=== PATIENT | female | born 1995 | race Caucasian/White ===

== ENCOUNTER 2017-12-25 10:30 | Outpatient (CLI) | payer BC ==
[~2017-12-25] VITALS: Ht 162.6 cm; Wt 143.3 kg
[2017-12-26] MEDS ORDERED: DEXAINTSOL PO (09:46)
[2017-12-26] MEDS ORDERED: TETRACAINESUCKERS MT (09:46)
[2017-12-26] MEDS ORDERED: HYDR15SO8 PO (09:46)
[2017-12-26] MEDS ORDERED: AMOX250S5 PO (09:46)
== END 2017-12-25 14:44 ==
LOC: PREOP 10:30
PROVIDERS: ATTEND Otolaryngology Otolaryngology/Facial Plastic Surgery
DX: Z01.818 Encounter for other preprocedural examination (principal); R06.83 Snoring; J35.3 Hypertrophy of tonsils with hypertrophy of adenoids

== ENCOUNTER 2017-12-26 06:47 | Day surgery (SDC) | payer BC ==
[~2017-12-26] VITALS: Ht 162.6 cm; Wt 143.3 kg
--- NOTE | 2017-12-26 07:09 | Progress Note-Pre Operative ---
Pre-Operative Progress Note H&P Reviewed The H&P was reviewed, patient examined and no changes noted. Date Seen by Provider: Dec 26, 2017 Time Seen by Provider: 07:00 Date H&P Reviewed: Dec 26, 2017 Time H&P Reviewed: 07:00 Pre-Operative Diagnosis: REc Tons/ Tons Hypertrophy IVON CIFUENTES MD Dec 26, 2017 7:09 am
[2017-12-26 07:10] VITALS: BP 146/98
[2017-12-26 07:25] LABS: BASOPHILS # (AUTO) 0.1 10^3/uL (0.0-0.1); BASOPHILS % (AUTO) 1 % (0-10); EOSINOPHILS # (AUTO) 0.2 10^3/uL (0.0-0.3); EOSINOPHILS % (AUTO) 1 % (0-10); HEMATOCRIT 41 % (35-52); LYMPHOCYTES # (AUTO) 2.5 X 10^3 (1.0-4.0); LYMPHOCYTES % (AUTO) 23 % (12-44); MEAN CORPUSCULAR HEMOGLOBIN 26 PG (25-34); MEAN CORPUSCULAR HGB CONC 32 G/DL (32-36); MEAN CORPUSCULAR VOLUME 81 FL (80-99); MEAN PLATELET VOLUME 9.8 FL (7.4-10.4); MONOCYTES # (AUTO) 0.8 X 10^3 (0.0-1.0); MONOCYTES % (AUTO) 7 % (0-12); NEUTROPHILS # (AUTO) 7.4 X 10^3 (1.8-7.8); NEUTROPHILS % (AUTO) 68 % (42-75); PLATELET COUNT 355 10^3/uL (130-400); RED BLOOD COUNT 5.02 10^6/uL (4.35-5.85); RED CELL DISTRIBUTION WIDTH 14.6 % (10.0-14.5); WHITE BLOOD COUNT 10.9 10^3/uL (4.3-11.0)
[2017-12-26] MEDS ORDERED: MIDAZOLAM 2 MG/2 ML (VERSED) VIAL ONE (07:50)
[2017-12-26] MEDS ORDERED: LIDOCAINE PF 2% 5 ML (XYLOCAINE) VIAL ONE (07:50)
[2017-12-26] MEDS ORDERED: ONDANSETRON 4 MG/2 ML (SDV) Z0FRAN ONE (07:50)
[2017-12-26] MEDS ORDERED: proPOfol 200 MG/20 ML (DIPRIVAN) VIAL IV ONE (07:50)
[2017-12-26] MEDS ORDERED: fentaNYL INJECTION 100 MCG/2 ML AMP ONE (07:50)
[2017-12-26] MEDS ORDERED: DEXAMETHASONE 10 MG/ML (DECADRON) 1 ML VIAL ONE (07:51)
[2017-12-26] MEDS ORDERED: LACTATED RINGERS 1,000 ML IV PRN (08:10)
[2017-12-26] MEDS ORDERED: SEVOFLURANE (ULTANE) 15 ML INHAL SOLN ONE (08:29)
[2017-12-26] MEDS ORDERED: NS IV 1000 ML 1,000 ML IV SCH (08:30)
[2017-12-26] MEDS ORDERED: APAP 325 MG/10.15 ML LIQ (TYLENOL) UDC PO PRN (08:30)
[2017-12-26] MEDS ORDERED: HYDROcodone/APAP 7.5MG-325 MG/15 ML (LORTAB) UDC PO PRN (08:30)
--- NOTE | 2017-12-26 08:30 | Progress Note-Post Operative ---
Post-Operative Progess Note Surgeon (s)/Pot Puncher (s) Surgeon IVON CIFUENTES MD Pot Puncher n/a Pre-Operative Diagnosis REc Tons/ Tons Hypertrophy Post-Operative Diagnosis same Post-Op Procedure Note Date of Procedure: Dec 26, 2017 Name of Procedure Performed: T/A Description & Findings Description and Findings: n/a Anesthesia Type get Estimated Blood Loss minimal Packing none. Specimen(s) collected/removed tonsils IVON CIFUENTES MD Dec 26, 2017 8:30 am
[2017-12-26] MEDS ORDERED: HYDROmorphone (DILAUDID) 2 MG/ML VIAL IVP PRN (08:45)
[2017-12-26] MEDS ORDERED: PROMETHAZINE INJ 25 MG/ML (PHENERGAN) AMP IVP PRN (08:45)
[2017-12-26] MEDS ORDERED: ONDANSETRON 4 MG/2 ML (SDV) Z0FRAN IVP PRN (08:45)
[2017-12-26] MEDS ORDERED: MEPERIDINE (DEMEROL) INJ 50 MG/ML IVP PRN (08:45)
[2017-12-26] MEDS: morphine INJ 10 MG/ML 1ML (SYR OR VIAL) IVP PRN ×2 (08:45→09:02)
[2017-12-26 09:30] VITALS: BP 131/65
[2017-12-26] MEDS ORDERED: AMOX250S5 PO (09:46)
[2017-12-26] MEDS ORDERED: HYDR15SO8 PO (09:46)
[2017-12-26] MEDS ORDERED: TETRACAINESUCKERS MT (09:46)
[2017-12-26] MEDS ORDERED: DEXAINTSOL PO (09:46)
[2017-12-26 10:00] VITALS: BP 129/85
[2017-12-26 10:30] VITALS: BP 118/77
[2017-12-26 11:30] VITALS: BP 118/77
== END 2017-12-26 11:50 | disposition home or self-care (01) ==
LOC: SDC 06:47
PROVIDERS: ATTEND Otolaryngology Otolaryngology/Facial Plastic Surgery
DX: J35.01 Chronic tonsillitis (principal); J35.3 Hypertrophy of tonsils with hypertrophy of adenoids; E66.01 Morbid (severe) obesity due to excess calories; Z68.43 Body mass index [BMI] 50.0-59.9, adult
CPT/HCPCS: 36415; 84703; 85025; 87081